=== PATIENT | female | born 1995 | race Caucasian/White ===

== ENCOUNTER → 2020-03-02 15:05 | Outpatient (BNVA) | payer BC, SELFPAY | PROVIDERS: Family Provider Nurse Practitioner Family; PCP Nurse Practitioner Family; Visit Provider Nurse Practitioner Family | DX: Z34.90 Encounter for supervision of normal pregnancy, unspecified, unspecified trimester (principal); Z3A.01 Less than 8 weeks gestation of pregnancy; R11.0 Nausea | CPT/HCPCS: 81000; 81025 ==

== ENCOUNTER → 2020-03-30 11:04 | Outpatient (BNVA) | payer MEDICAID, SELFPAY | PROVIDERS: Family Provider Nurse Practitioner Family; PCP Nurse Practitioner Family; Visit Provider Nurse Practitioner Women's Health | DX: Z34.81 Encounter for supervision of other normal pregnancy, first trimester (principal) | CPT/HCPCS: 81000 ==

== ENCOUNTER → 2020-04-17 10:50 | Outpatient (BNVA) | payer MEDICAID, SELFPAY | PROVIDERS: Family Provider Nurse Practitioner Family; PCP Nurse Practitioner Family; Visit Provider Obstetrics & Gynecology | DX: O99.211 Obesity complicating pregnancy, first trimester (principal) | CPT/HCPCS: 80053; 80307; 81000; 82950; 84443; 85027; 86592; 86762; 86803; 86850; 86900; 87086; 87340; 87806 ==

== ENCOUNTER → 2020-04-24 08:58 | Outpatient (BNVA) | payer BC, MEDICAID, SELFPAY | PROVIDERS: Family Provider Nurse Practitioner Family; PCP Nurse Practitioner Family; Visit Provider Obstetrics & Gynecology | DX: R73.09 Other abnormal glucose (principal) | CPT/HCPCS: 82951; 82952 ==

== ENCOUNTER → 2020-05-01 11:23 | Outpatient (BNVA) | payer BC, MEDICAID, SELFPAY | PROVIDERS: Family Provider Nurse Practitioner Family; PCP Nurse Practitioner Family; Visit Provider Obstetrics & Gynecology | DX: Z34.81 Encounter for supervision of other normal pregnancy, first trimester (principal); Z12.4 Encounter for screening for malignant neoplasm of cervix | CPT/HCPCS: 81000; 87491; 87591; 88175 ==

== ENCOUNTER → 2020-05-29 13:52 | Outpatient (BNVA) | payer MEDICAID, SELFPAY | PROVIDERS: Family Provider Nurse Practitioner Family; PCP Nurse Practitioner Family; Visit Provider Nurse Practitioner Women's Health | DX: Z34.90 Encounter for supervision of normal pregnancy, unspecified, unspecified trimester (principal); R82.71 Bacteriuria | CPT/HCPCS: 80053; 81000; 87086 ==

== ENCOUNTER → 2020-06-05 16:10 | Outpatient (BNVA) | payer BC, MEDICAID, SELFPAY | PROVIDERS: Family Provider Nurse Practitioner Family; PCP Nurse Practitioner Family; Visit Provider Obstetrics & Gynecology | DX: R82.71 Bacteriuria (principal) | CPT/HCPCS: 80053 ==

== ENCOUNTER → 2020-06-26 08:49 | Outpatient (BNVA) | payer MEDICAID, SELFPAY | PROVIDERS: Family Provider Nurse Practitioner Family; PCP Nurse Practitioner Family; Visit Provider Obstetrics & Gynecology | DX: O98.819 Other maternal infectious and parasitic diseases complicating pregnancy, unspecified trimester (principal); A74.9 Chlamydial infection, unspecified; Z3A.00 Weeks of gestation of pregnancy not specified | CPT/HCPCS: 81000; 87491 ==

== ENCOUNTER → 2020-07-20 15:31 | Outpatient (BNVA) | payer MEDICAID, SELFPAY | PROVIDERS: Family Provider Nurse Practitioner Family; PCP Nurse Practitioner Family; Visit Provider Nurse Practitioner Women's Health | DX: Z34.90 Encounter for supervision of normal pregnancy, unspecified, unspecified trimester (principal) | CPT/HCPCS: 81000 ==

== ENCOUNTER → 2020-08-13 13:45 | Outpatient (BNVA) | payer BC, MEDICAID, SELFPAY | PROVIDERS: Family Provider Nurse Practitioner Family; PCP Nurse Practitioner Family; Visit Provider Nurse Practitioner Family | DX: Z20.828 Contact with and (suspected) exposure to other viral communicable diseases (principal) | CPT/HCPCS: 87635 ==

== ENCOUNTER → 2020-08-20 14:09 | Outpatient (BNVA) | payer MEDICAID, SELFPAY | PROVIDERS: Family Provider Nurse Practitioner Family; PCP Nurse Practitioner Family; Visit Provider Obstetrics & Gynecology | DX: O99.213 Obesity complicating pregnancy, third trimester; Z67.91 Unspecified blood type, Rh negative; O98.819 Other maternal infectious and parasitic diseases complicating pregnancy, unspecified trimester; A74.9 Chlamydial infection, unspecified; B95.1 Streptococcus, group B, as the cause of diseases classified elsewhere; O26.893 Other specified pregnancy related conditions, third trimester; Z3A.28 28 weeks gestation of pregnancy | CPT/HCPCS: 81000; 82950; 85027; 86850; 87491 ==

== ENCOUNTER → 2020-09-03 00:01 | Outpatient (BNVA) | payer MEDICAID, SELFPAY | PROVIDERS: Family Provider Nurse Practitioner Family; PCP Nurse Practitioner Family; Visit Provider Obstetrics & Gynecology | DX: O98.819 Other maternal infectious and parasitic diseases complicating pregnancy, unspecified trimester (principal); A74.9 Chlamydial infection, unspecified; O26.899 Other specified pregnancy related conditions, unspecified trimester; R73.09 Other abnormal glucose; Z3A.00 Weeks of gestation of pregnancy not specified | CPT/HCPCS: 81000; 82951; 82952 ==

== ENCOUNTER → 2020-10-02 10:21 | Outpatient (BNVA) | payer BC, SELFPAY | PROVIDERS: Family Provider Nurse Practitioner Family; PCP Nurse Practitioner Family; Visit Provider Nurse Practitioner Women's Health | DX: O98.819 Other maternal infectious and parasitic diseases complicating pregnancy, unspecified trimester (principal); A74.9 Chlamydial infection, unspecified; O26.893 Other specified pregnancy related conditions, third trimester; Z67.91 Unspecified blood type, Rh negative; R82.71 Bacteriuria; O99.210 Obesity complicating pregnancy, unspecified trimester; E66.9 Obesity, unspecified; Z3A.00 Weeks of gestation of pregnancy not specified | CPT/HCPCS: 81000 ==

== ENCOUNTER → 2020-10-16 09:36 | Outpatient (BNVA) | payer BC, SELFPAY | PROVIDERS: Family Provider Nurse Practitioner Family; PCP Nurse Practitioner Family; Visit Provider Obstetrics & Gynecology | DX: O98.819 Other maternal infectious and parasitic diseases complicating pregnancy, unspecified trimester (principal); A74.9 Chlamydial infection, unspecified; O99.210 Obesity complicating pregnancy, unspecified trimester; R82.71 Bacteriuria; O26.893 Other specified pregnancy related conditions, third trimester; Z67.91 Unspecified blood type, Rh negative; O99.013 Anemia complicating pregnancy, third trimester; O98.813 Other maternal infectious and parasitic diseases complicating pregnancy, third trimester; Z3A.36 36 weeks gestation of pregnancy | CPT/HCPCS: 81000; 87491 ==

== ENCOUNTER → 2020-10-23 09:51 | Outpatient (BNVA) | payer BC, SELFPAY | PROVIDERS: Family Provider Nurse Practitioner Family; PCP Nurse Practitioner Family; Visit Provider Obstetrics & Gynecology | DX: O98.819 Other maternal infectious and parasitic diseases complicating pregnancy, unspecified trimester (principal); A74.9 Chlamydial infection, unspecified; O26.893 Other specified pregnancy related conditions, third trimester; Z67.91 Unspecified blood type, Rh negative; R82.71 Bacteriuria; Z3A.00 Weeks of gestation of pregnancy not specified | CPT/HCPCS: 81000 ==

== ENCOUNTER 2020-10-25 09:33 | Outpatient (CLI) | payer BC, SELFPAY ==
[2020-10-25] VITALS (8 sets, daily range): BP systolic 124–140; BP diastolic 78–86; PULSE 81–100; BMI 36.6
[2020-10-25 12:30] LABS: Nitrazine Paper, PH Negative
== END 2020-10-25 12:15 | disposition home or self-care (01) ==
LOC: OPOB 09:35 → OBGYN 10:09
PROVIDERS: Family Provider Nurse Practitioner Family; PCP Nurse Practitioner Family; Visit Provider Obstetrics & Gynecology
DX: O26.899 Other specified pregnancy related conditions, unspecified trimester (principal); Z3A.00 Weeks of gestation of pregnancy not specified; N89.8 Other specified noninflammatory disorders of vagina
CPT/HCPCS: 59025; 83986; 99211

== ENCOUNTER 2020-10-30 15:02 | Inpatient (IN) | payer BC, MEDICAID, SELFPAY ==
[2020-10-30] VITALS (71 sets, daily range): BP systolic 96–158; BP diastolic 52–120; PULSE 81–169; RESP 18–20; TEMP 36.5–37.4; O2SAT 93–100; BMI 36.7
[2020-10-30 16:58] LABS: Basophils % 0.2 %; Eosinophils % 0.1 %; Hematocrit 34.7 % (37.0-47.0); Hemoglobin 11.7 g/dL (11.5-15.3); Lymphocytes # 1.4 10^3/uL (0.8-4.8); Lymphocytes % 7.5 %; Mean Corpuscular HGB Conc 33.7 g/dL (30.0-36.0); Mean Corpuscular Hemoglobin 30.3 pg (28.0-34.0); Mean Corpuscular Volume 89.9 fL (81-99); Mean Platelet Volume 11.4 fL (7.4-10.4); Monocytes # 1.2 10^3/uL (0.2-0.9); Monocytes % 6.6 %; Neutrophils # 16.13 10^3/uL (1.8-7.7); Neutrophils % 85.1 %; Nucleated Red Blood Cells % 0 %; Platelet Count 240 10^3/cmm (130-400); Red Blood Count 3.86 10^6/uL (4.1-5.3); Red Cell Distribution Width 13.7 % (12.1-15.1); White Blood Count 18.9 10^3/uL (4.0-10.0)
[2020-10-30] MEDS: ampicillin 2,000 MG in sodium chloride 0.9% (plus) 50 ML 100 MG IV (17:04)
[2020-10-30] MEDS: lactated ringers 1,000 ML 999 ML IV (17:04)
--- NOTE | 2020-10-30 17:51 | ANES.PREANE2 ---
Pre-Anesthetic Assessment Pre-Anesthetic Assessment: Height/Weight: Height 1.57 m Weight 91.172 kg Pulse BP 81 97/57 10/30/20 17:33 10/30/20 17:33 Preop Diagnosis: labor Proposed Procedure: epidural Was Beta Rowan taken within 24 hours: N/A Last Intake: 11:30 Social: Social History: No alcohol and No tobacco Exam: Pre-Anes Outpt Exam: alert, oriented x 3, clear to auscultation bilaterally and regular rate & rhythm Airway: Submandibular: WNL Cervical ROM: WNL MP: 2 Dentition: Full Pulmonary: Pulmonary: None reported CV/HEM: CV/HEM: None reported : : None reported Hepatic: Hepatic: None reported GI: GI: None reported Metabolic: Metabolic: None reported Musc/skel: Musc/skel: None reported Neuropsych: Neuropsych: None reported Anesthetic Plan: ASA status: 2 Anesthesia: Eval. for regional block and Regional (specify below) (epidural) Meds/Allergies Current Medications: Current Medications Generic Name Dose Route Start Last Admin Trade Name Freq PRN Reason Stop Dose Admin Lactated Ringer's 1,000 mls @ 999 m ls/hr 10/30/20 16:19 10/30/20 17:04 Lactated Ringers IV 999 mls/hr .Q1H1M PRN Administration See label comment s PFSH Anesthesia PFSH: Medical History No pertinent past medical history Denies diabetes, asthma, hypertension, seizures, DVT/PE PMD: None Surgical History History of tonsillectomy and adenoidectomy At the age of-no complications Family History Mother Diabetes Hypertension Denies family history of Colon cancer Ovarian cancer Heart disease Hyperlipidemia Breast cancer Uterine cancer Thyroid condition Stroke Social History Additional social history: - Female Reproductive History: : 2 Data Anesthesia CBC & Chem 7: 10/30/20 16:45 Other Labs: Laboratory Results - last 48 hr 10/30/20 16:45 WBC 18.9 H RBC 3.86 L Hgb 11.7 Hct 34.7 L MCV 89.9 MCH 30.3 MCHC 33.7 RDW 13.7 Plt Count 240 MPV 11.4 H Neut % (Auto) 85.1 Lymph % (Auto) 7.5 Clinton % (Auto) 6.6 Eos % (Auto) 0.1 Baso % (Auto) 0.2 Neut # (Auto) 16.13 H Lymph # (Auto) 1.4 Clinton # (Auto) 1.2 H Eos # (Auto) 0.0 Baso # (Auto) 0.0 Nucleated RBC % (auto) 0 Nucleated RBCs # 0.0 Cardiac Studies: No Data to Display
--- NOTE | 2020-10-30 18:25 | P.ANES_ITS ---
Anesthesia Procedures Procedure/Date: 10/30/20 Epidural: Time Out Performed: Yes Consents Signed: Procedure Consent and NPO Consent Consent: requested by attending/covering physician, from patient, risks and benefits reviewed and patient agrees to proceed Lumbar Level: L3-L4 Epidural position: sitting Epidural procedure: sterile prep of area (betadine), 1% lidocaine to numb the area (3ml), 18 g needle, neg for paresthesia, test dose given, 1.5% xylocaine 1:200k epi (5ml), 0.2% Ropivacaine bolus ml (5ml), placed PCEA, no systemic response, sterile dressing applied, L.U.D. no apparent complications and 0.2% Ropiavacaine @ mls/hr (11ml/hr) Additional Comments: First epidural had positive test dose with HR inc from 88- 130. Catheter removed with tip intact. Catheter replaced with negative test dose. Pt tolerated well
[2020-10-30] MEDS: ampicillin 1,000 MG in sodium chloride 0.9% (plus) 50 ML 100 MG IV (20:18)
[2020-10-30] MEDS: dextrose 5%-lactated ringers 1,000 ML 125 ML IV (20:19)
--- NOTE | 2020-10-30 22:22 | P.PCNOB_ITS ---
Delivery Note: Date of delivery: October 30, 2020 Pre-delivery diagnoses: spontaneous labor GBS + in rh negative anemia chlamydia infection in Post-delivery diagnoses: same with spontaneous vaginal delivery Procedure: Op report anesthesia: Epidural Delivering Physician: brody Estimated blood loss (mL): 50 Findings: term female in the cephalic presentation Pre-Delivery Course: The patient presented to labor and delivery in active labor. She made cervical change and was admitted. She received an epidural for pain management. She had complete cervical dilation and began pushing. She received two doses of PCN prior to delivery. She had SROM at the point where she began to push.. Delivery: The patient had spontaneous vaginal delivery of a term female in the ROP to NORBERT position over an intact perineum under epidural anesthesia. A single nuchal cord was reduced at the perineum. The shoulders and body delivered atraumatically. Inspection revealed no repair was required. An intact placenta delivered spontaneously. Apgars on baby 8 at 1 minute and 9 at 5 minutes. Weight 8 pounds 1 ounce. Mother and were stable postdelivery. Cord blood was sent due to mothers Rh- status. 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
[2020-10-31] VITALS (14 sets, daily range): BP systolic 106–126; BP diastolic 55–74; PULSE 83–109; TEMP 36.9
[2020-10-31] MEDS: benzocaine-menthol 78 gm Canister 1 SPRAY TOPICAL (04:35)
[2020-10-31] MEDS: docusate sodium 100 mg Capsule PO ×2 (09:51→17:29)
[2020-10-31] MEDS: ibuprofen 800 mg tablet PO ×3 (09:51→20:50)
[2020-10-31] MEDS: prenatal vitamin Capsule 1 CAP PO (09:51)
[2020-10-31 11:01] LABS: Hematocrit 33.3 % (37.0-47.0); Hemoglobin 11.3 g/dL (11.5-15.3); Mean Corpuscular HGB Conc 33.9 g/dL (30.0-36.0); Mean Corpuscular Hemoglobin 30.7 pg (28.0-34.0); Mean Corpuscular Volume 90.5 fL (81-99); Mean Platelet Volume 11.3 fL (7.4-10.4); Platelet Count 253 10^3/cmm (130-400); Red Blood Count 3.68 10^6/uL (4.1-5.3); Red Cell Distribution Width 13.9 % (12.1-15.1); White Blood Count 26.8 10^3/uL (4.0-10.0)
[2020-10-31 14:17] LABS: Coronavirus Test Green County Not Detected
--- NOTE | 2020-10-31 15:03 | P.PN_ITS ---
Subjective Subjective: Interval history: The patient is doing well this morning with no complaints. Medications: Reviewed: Yes Vitals/I&O/Wt Last Vital Signs Temp 98.1 F 11/01/20 10:28 Pulse 81 11/01/20 10:23 Resp 16 11/01/20 10:28 BP 108/72 11/01/20 10:23 Pulse Ox 97 10/30/20 22:09 11/01/20 11/01/20 11/01/20 06:59 14:59 22:59 Intake Total Balance Weight last 48 hrs Weight 201 lb Physical Exam Const: COMMON NORMALS: no acute distress, average body habitus, patient oriented x3, no limitations, healthy appearing, alert and well nourished ORIENTATION/CONSCIOUSNESS: Yes awake Resp: COMMON NORMALS: normal respiratory effort and No retractions EFFORT & INSPECTION: Yes able to speak in complete sentences GI: COMMON NORMALS: Soft to palpation and non-tender PALPATION: Yes Soft to palpation Extremity: COMMON NORMALS: no clubbing, cyanosis or edema Neuro: COMMON NORMALS: patient oriented x3 SENSORIUM/ORIENTATION: Yes alert Urinary Catheter Management^: Lynn: Cath Placed During This Visit: yes, but has since been removed by the nurse Reason for Continuing Indwelling Catheter: Decision to DC Catheter Urinary Catheter Date of Insertion: 10/30/20 Urinary Catheter Time of Insertion: 18:30 Date Urinary Catheter Removed: 10/30/20 Time Urinary Catheter Discontinued: 21:45 Data : 10/31/20 10:35 Attestations Medical Necessity Statement*: The patient is post and expected to be here 2 midnights. 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
[2020-11-01 01:00] VITALS: TEMP 36.7
[2020-11-01 03:12] VITALS: BP 100/55; PULSE 74; TEMP 36.9
[2020-11-01] MEDS: ibuprofen 800 mg tablet PO ×2 (08:31→15:05)
[2020-11-01] MEDS: docusate sodium 100 mg Capsule PO (08:31)
[2020-11-01] MEDS: prenatal vitamin Capsule 1 CAP PO (08:32)
--- NOTE | 2020-11-01 09:31 | ANE.PACU2 ---
Inpatient post-anesthesia follow up: Airway intact: Yes Vital signs: Temperature 98.4 F Pulse Rate 74 Respiratory Rate 20 Blood Pressure 100/55 Pulse Oximetry 97 Oxygen Delivery Me thod Room Air Oxygen Flow Rate Fraction of Inspir ed Oxygen Hydration adequate: Yes Nausea and vomiting: No Pain level: 1 Mental status: Baseline Additional Comments: No s/s infection at epidural site, no weakness/numbness legs, no headache, peeing [id number] persaud
[2020-11-01 10:23] VITALS: BP 108/72; PULSE 81; RESP 16; TEMP 36.7
[2020-11-01 10:28] VITALS: RESP 16; TEMP 36.7
--- NOTE | 2020-11-01 15:05 | P.DS_ITS ---
Discharge Providers Date of Admission: 10/30/20 15:02 Date of Discharge: November 01, 2020 Attending Provider at Admission: Tamara Mcpherson MD Attending Provider at Discharge: Tanesha Kaur MD Primary Care Provider: Justina Fagan APN Diagnoses at Discharge Discharge Diagnosis (1) Anemia affecting in third trimester: Status: Acute (2) Rh negative status during : Status: Acute Qualifiers: Trimester: third trimester Qualified Code(s): O26.893 - Other specified related conditions, third trimester; Z67.91 - Unspecified blood type, Rh negative (3) Supervision of normal : Status: Acute Qualifiers: Normal : other normal Trimester: third trimester Qualified Code(s): Z34.83 - Encounter for supervision of other normal , third trimester Reason for Visit Reason for Visit: CONTRACTIONS Hospital Course Hospital Course The patient was admitted in active labor. She had spontaneous delivery of a term female . She did well and was ready for discharge on day #2 Physical Exam Narrative: EXAM NARRATIVE: The patient is doing well today. no complaints. Baby will be here until tomorrow morning due to GBS+ status. Const: COMMON NORMALS: no acute distress, patient oriented x3, no limitations, healthy appearing, alert and well nourished ORIENTATION/CONSCIOUSNESS: Yes awake Resp: COMMON NORMALS: normal respiratory effort and No retractions EFFORT & INSPECTION: Yes able to speak in complete sentences GI: COMMON NORMALS: Soft to palpation and non-tender PALPATION: Yes Soft to palpation Extremity: COMMON NORMALS: no clubbing, cyanosis or edema Neuro: COMMON NORMALS: patient oriented x3 SENSORIUM/ORIENTATION: Yes alert Urinary Catheter Management^: Lynn: Cath Placed During This Visit: yes, but has since been removed by the nurse Reason for Continuing Indwelling Catheter: Decision to DC Catheter Urinary Catheter Date of Insertion: 10/30/20 Urinary Catheter Time of Insertion: 18:30 Date Urinary Catheter Removed: 10/30/20 Time Urinary Catheter Discontinued: 21:45 Discharge Data Data Completed and Pending: Labs from last 24 hours 10/30/20 16:45 Blood Type O Negative Rho(D) Type Negative Antibody Screen Positive Antibody Identific ation Anti-D Vitals: Last Vital Signs Temp 98.1 F 11/01/20 10:28 Pulse 81 11/01/20 10:23 Resp 16 11/01/20 10:28 BP 108/72 11/01/20 10:23 Pulse Ox 97 10/30/20 22:09 Discharge Plan Discharge Patient Disposition: Home Condition: Stable Prescriptions: Continued Gummies 400 mcg-35 mg- 25 mg-5 mg tablet,chewable 2 tab PO DAILY RF: 0 ferrous sulfate 325 mg (65 mg iron) tablet,delayed release (DR/EC) 325 mg PO BID RF: 0 Discharge Orders: Discharge Order (Routine); Ordered 11/01/20 Ordered By: Tamara Mcpherson Referrals: Tanesha Kaur MD [Physician] - 12/18/20 10:15 am (Your 6 week visit has been scheduled for 12/18/2020 at 10:15 am.) Patient Instructions: Vitamins (By mouth), Breast Care for the Non- breast Feeding Woman (DC), Pre-eclampsia and Eclampsia (DC), Bleeding (DC), OB Discharge Report, OB Food/Drug Interaction Guide, OB Home Care, OB Proud Parent Packet, OB Vaginal Deliveries - [facility] Discharge Attestations Time Spent in Discharge Care*: less than 30 min Quality Metrics Clinical Quality Measures During this hospital stay, did patient experience: None Coding Level of Care 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
[2020-11-01 16:19] VITALS: BP 108/61; PULSE 75; RESP 17; TEMP 36.5
[2020-11-12 11:29] VITALS: BP 122/74; PULSE 88
[2020-11-12 12:01] VITALS: BP 128/77; PULSE 86
[2020-11-12 12:51] VITALS: BP 135/80; PULSE 75
[2020-11-12 13:06] VITALS: BP 144/86; PULSE 78
== END 2020-11-01 16:21 | disposition home or self-care (01) | DRG 806 ==
LOC: OPOB 15:02 → OBGYN 10-31 09:41
PROVIDERS: Obstetrics & Gynecology; Admitting Provider Obstetrics & Gynecology; Family Provider Nurse Practitioner Family; PCP Nurse Practitioner Family; Visit Provider Obstetrics & Gynecology
DX: O99.824 Streptococcus B carrier state complicating childbirth (principal); O36.0930 Maternal care for other rhesus isoimmunization, third trimester, not applicable or unspecified; Z37.0 Single live birth; O98.82 Other maternal infectious and parasitic diseases complicating childbirth; O99.02 Anemia complicating childbirth; D64.9 Anemia, unspecified; O99.214 Obesity complicating childbirth; O69.2XX0 Labor and delivery complicated by other cord entanglement, with compression, not applicable or unspecified; Z3A.38 38 weeks gestation of pregnancy
CPT/HCPCS: 36415; 36430; 51702; 59025; 59409; 80500; 81000; 85025; 85027; 85460; 86850; 86870; 86900; 87635; 90384; 99211; J0290; J2795

== ENCOUNTER 2021-02-17 00:51 | Emergency (ER) | payer BC, MEDICAID, SELFPAY ==
[2021-02-17] VITALS (7 sets, daily range): BP systolic 105–133; BP diastolic 75–96; PULSE 60–80; RESP 13–22; TEMP 36.6; O2SAT 95–100; BMI 32.9
--- NOTE | 2021-02-17 01:15 | XRR_ITS ---
PROCEDURE INFORMATION: Exam: XR Chest Exam date and time: 02/17/2021 1:31 AM Age: 25 years old Clinical indication: Pain; Right-sided; Additional info: Cp TECHNIQUE: Imaging protocol: XR of the chest. Views: 1 view. COMPARISON: No relevant prior studies available. FINDINGS: Lungs: Unremarkable. No consolidation. Pleural spaces: Unremarkable. No pleural effusion. No pneumothorax. Heart/Mediastinum: Unremarkable. No cardiomegaly. Bones/joints: Unremarkable. XR/XR chest 1V portable [id number] IMPRESSION: No acute findings.
--- NOTE | 2021-02-17 01:17 | USR_ITS ---
PROCEDURE INFORMATION: Exam: US Abdomen, Limited; Right Upper Quadrant Exam date and time: 02/17/2021 1:51 AM Age: 25 years old Clinical indication: Abdominal pain; Acute; Additional info: Ruq pain TECHNIQUE: Imaging protocol: US abdomen. Real time ultrasound with image documentation. Limited exam focused on the right upper quadrant. COMPARISON: No relevant prior studies available. FINDINGS: Liver: Normal. No masses. Gallbladder: Mobile gallstones are present with shadowing. There is no gallbladder wall thickening. Common bile duct: Normal. No stones. No dilation. Pancreas: Visualized pancreas is unremarkable. Right kidney: Normal. No mass. No hydronephrosis. US/US gall bladder [id number] IMPRESSION: Gallstones are present without gallbladder wall thickening or ductal dilatation.
--- NOTE | 2021-02-17 01:17 | ECG_ITS ---
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 Measurements Intervals [place] Rate: 58 P: 42 DE: 166 QRS: 36 QRSD: 94 T: 40 QT: 435 QTc: 429 Interpretive Statements SINUS BRADYCARDIA WITH SINUS ARRHYTHMIA INCOMPLETE RIGHT BUNDLE BRANCH BLOCK [90+ ms QRS DURATION, TERMINAL R IN V1/V2, 40+ ms S IN I/aVL/V4/V5/V6] No previous ECG available for comparison Electronically Signed On 02-17-2021 22:14:23 CDT by Yassine Patel M.D. [id number]
[2021-02-17 01:26] LABS: Basophils % 0.3 %; Eosinophils # 0.1 10^3/uL (0.0-0.8); Hematocrit 37.5 % (37.0-47.0); Hemoglobin 12.9 g/dL (11.5-15.3); Lymphocytes # 3.1 10^3/uL (0.8-4.8); Lymphocytes % 31.4 %; Mean Corpuscular HGB Conc 34.4 g/dL (30.0-36.0); Mean Corpuscular Hemoglobin 31.2 pg (28.0-34.0); Mean Corpuscular Volume 90.6 fL (81-99); Mean Platelet Volume 10.3 fL (7.4-10.4); Monocytes # 0.7 10^3/uL (0.2-0.9); Monocytes % 6.7 %; Neutrophils # 5.89 10^3/uL (1.8-7.7); Neutrophils % 60.4 %; Nucleated Red Blood Cells % 0 %; Platelet Count 284 10^3/cmm (130-400); Red Blood Count 4.14 10^6/uL (4.1-5.3); Red Cell Distribution Width 12.3 % (12.1-15.1); White Blood Count 9.8 10^3/uL (4.0-10.0)
[2021-02-17] MEDS: sodium chloride 0.9% 1,000 ML 999 ML IV (01:28)
[2021-02-17] MEDS: morphine 4 mg/mL SDV 1 mL IVP ×2 (01:28→02:42)
[2021-02-17] MEDS: ondansetron 2 mg/ML SDV 2 mL 4 MG IVP (01:28)
[2021-02-17] MEDS: ketorolac 30 mg/mL INJ IVP (01:28)
[2021-02-17 01:36] LABS: HCG, Serum Qual Negative (Negative)
[2021-02-17 01:40] LABS: D Dimer <= 0.27 ug/mIFEU (0-0.59)
[2021-02-17 01:42] LABS: Troponin T (5th) Once 6 ng/L (0-10)
[2021-02-17 01:45] LABS: Alanine Aminotransferase 9 U/L (0-33); Albumin Level 4.6 g/dL (3.5-5.2); Alkaline Phosphatase 87 IU/L (35-105); Anion Gap 17.6 (5-19); Aspartate Amino Transferase 11 U/L (0-32); Blood Urea Nitrogen 11 mg/dL (6-20); C Reactive Protein 1.2 mg/L (0.0-4.9); Calcium 9.2 mg/dL (8.5-10.5); Carbon Dioxide 19 mmol/L (22-29); Chloride 104 mmol/L (98-107); Globulin 2.2 g/dL (1.3-4.6); Glomerular Filtration Rate 101.1 mL/min (90-130); Glucose 103 mg/dL (65-115); Lipase 30 U/L (13-60); Osmolality Calculated 284 mOsm/kg (285-295); Potassium 3.6 mmol/L (3.5-5.1); Sodium 137 mmol/L (136-145); Total Bilirubin 0.2 mg/dL (0.15-1.2); Total Protein 6.8 g/dL (6.6-8.7)
--- NOTE | 2021-02-17 02:16 | W.ED.ABDPA2 ---
HPI - Abdominal Pain General: Chief Complaint: Abdominal Pain Stated Complaint: cp, back pain, ab pain Time Seen by Provider: 02/17/21 01:06 History of Present Illness: HPI narrative: 25-year-old female with epigastric and right upper quadrant pain as well as chest pain. It started around 8 PM tonight. It did not go away. She vomited 1 time. She remains nauseated. No fever. She states no shortness of breath. MD elicited complaint: abdominal pain Pertinent past history: other Onset (ago): hour(s) Pain Consistency: constant Location: Chest, Epigastric and RUQ Severity: moderate Quality: stabbing and aching Radiation: back Migration to: no migration Exacerbating factors: movement Relieving factors: nothing Associated Symptoms: Reports GI cramping, diarrhea, nausea and vomiting; Denies belching, change in bowel habits, change in stool character, chills, constipation, dysuria, excessive flatus and fever(s) Related Data: Date of Last Menstrual Period: 01/19/21 Review of Systems Const: Denies: fever(s) or chills ENMT: Denies: throat pain Card: Reports: chest pain; Denies: palpitations or irregular heart rhythm Resp: Denies: dyspnea, productive cough, non-productive cough or wheezing GI: Reports: nausea, vomiting, diarrhea and GI cramping; Denies: constipation, belching, excessive flatus, change in bowel habits or change in stool character : Denies: dysuria Neuro: Denies: headache(s) or dizziness PFSH ED PFSH: Medical History No pertinent past medical history Denies diabetes, asthma, hypertension, seizures, DVT/PE PMD: None Surgical History History of tonsillectomy and adenoidectomy At the age of-no complications Family History Mother Diabetes Hypertension Denies family history of Colon cancer Ovarian cancer Heart disease Hyperlipidemia Breast cancer Uterine cancer Thyroid condition Stroke Social History Additional social history: - Female Reproductive History: Date of last menstrual period: 01/19/21 Physical Exam Const: GENERAL APPEARANCE: well developed, in distress and ill appearing ORIENTATION/CONSCIOUSNESS: Yes oriented to person, Yes oriented to place and Yes oriented to time HENMT: COMMON NORMALS: normocephalic and Normal external nose present HEAD & SCALP: normocephalic FACE & SINUS: normal facial exam NOSE: Normal external nose present and No nasal discharge present Eye: COMMON NORMALS: Equal, round and reactive pupils present, EOMs intact bilaterally and conjunctivae normal EYELID: eyelids normal CONJUNCTIVA: Yes conjunctivae normal PUPIL: Yes Equal, round and reactive pupils present Neck/C-Spine: COMMON NORMALS: full ROM GENERAL: No tracheal deviation Chest: COMMONS NORMALS: normal inspection of the chest CHEST: No tenderness Resp: COMMON NORMALS: clear to auscultation bilaterally EFFORT & INSPECTION: No tachypneic, No respiratory distress, No retractions, No uses accessory muscles and No tracheal deviation AUSCULTATION: clear to auscultation bilaterally, no rhonchi, no wheezes and lung sounds not diminished Cardio: COMMON NORMALS: regular rate and regular rhythm RATE: regular rate RHYTHM: regular rhythm HEART SOUNDS: no murmurs PERIPHERAL PULSES: radial pulses present GI: INSPECTION: No abdominal distension AUSCULTATION: No Hyperactive bowel sounds present and No Hypoactive bowel sounds present PALPATION: No Guarding due to palpation present (GI) and No Rigid due to palpation PERCUSSION: no dullness to percussion and no tympanic to percussion Neuro: SENSORIUM/ORIENTATION: Yes oriented to person, Yes oriented to place and Yes oriented to time Psych: COMMON NORMALS: mental status grossly normal Skin: COMMON NORMALS: no rashes or lesions noted GENERAL SKIN EXAM: no rashes or lesions noted Course Vital Signs: Vital signs: Vital Signs Temperature 97.9 F 02/17/21 00:58 Pulse Rate 78 02/17/21 02:30 Respiratory Rate 20 H 02/17/21 02:42 Blood Pressure 122/79 02/17/21 02:30 Pulse Oximetry 98 02/17/21 02:42 MDM - Abdominal Pain MDM Narrative: Medical decision making narrative: Patient given fluids antiemetics and pain medication here. She is improved. Her bicarbonate level is 19. Other laboratory including troponin and D-dimer are normal. Chest x-ray is negative. Right upper quadrant ultrasound shows gallstones in the gallbladder, in the fundus. Bile ducts are normal. No wall thickening or pericholecystic fluid. She will be discharged home. Lab Data: Labs: Lab Results 02/17/21 02/17/21 02/17/21 Range/Units 01:21 01:21 01:21 WBC 9.8 (4.0-10.0) 10^3/ uL RBC 4.14 (4.1-5.3) 10^6/u L Hgb 12.9 (11.5-15.3) g/dL Hct 37.5 (37.0-47.0) % MCV 90.6 (81-99) fL MCH 31.2 (28.0-34.0) pg MCHC 34.4 (30.0-36.0) g/dL RDW 12.3 (12.1-15.1) % Plt Count 284 (130-400) 10^3/c mm MPV 10.3 (7.4-10.4) fL Neut % (Auto) 60.4 % Lymph % (Auto) 31.4 % Ramsey % (Auto) 6.7 % Eos % (Auto) 1.0 % Baso % (Auto) 0.3 % Neut # (Auto) 5.89 (1.8-7.7) 10^3/u L Lymph # (Auto) 3.1 (0.8-4.8) 10^3/u L Ramsey # (Auto) 0.7 (0.2-0.9) 10^3/u L Eos # (Auto) 0.1 (0.0-0.8) 10^3/u L Baso # (Auto) 0.0 (0.0-0.1) 10^3/u L Nucleated RBC % (a uto) 0 % Nucleated RBCs # 0.0 /100WBC D-Dimer <= 0.27 (0-0.59) ug/mIFE U Sodium 137 (136-145) mmol/L Potassium 3.6 (3.5-5.1) mmol/L Chloride 104 (98-107) mmol/L Carbon Dioxide 19 L (22-29) mmol/L Anion Gap 17.6 (5-19) BUN 11 (6-20) mg/dL Creatinine 0.7 (0.5-0.9) mg/dL GFR Calculation 101.1 (90-130) mL/min Glucose 103 (65-115) mg/dL Calculated Osmolal ity 284 L (285-295) mOsm/k g Calcium 9.2 (8.5-10.5) mg/dL Total Bilirubin 0.2 (0.15-1.2) mg/dL AST 11 (0-32) U/L ALT 9 (0-33) U/L Alkaline Phosphata se 87 (35-105) IU/L Troponin T Gen 5 n g/L (0-10) ng/L C-Reactive Protein 1.2 (0.0-4.9) mg/L Total Protein 6.8 (6.6-8.7) g/dL Albumin 4.6 (3.5-5.2) g/dL Globulin 2.2 (1.3-4.6) g/dL Lipase 30 (13-60) U/L HCG, Qual (Negative) Urine Color (Yellow) Urine Appearance (CLEAR) Urine pH (5-7) Ur Specific Gravit y (1.005-1.030) Urine Protein (Negative) Urine Glucose (UA) (Normal) Urine Ketones (Negative) Urine Blood (Negative) Urine Nitrate (Negative) Urine Bilirubin (Negative) Prot Sulfosalicyli c Acd (Negative) Urine Urobilinogen (Negative) mg/dL Ur Leukocyte Elise ase (Negative) Urine RBC (0-2) /hpf Urine WBC (0-5) /hpf Ur Squamous Epith Cells (0-5) /hpf Amorphous Sediment /hpf Urine Bacteria (NONE) /hpf Other Casts /lpf 02/17/21 02/17/21 02/17/21 Range/Units 01:21 01:21 02:24 WBC (4.0-10.0) 10^3/ uL RBC (4.1-5.3) 10^6/u L Hgb (11.5-15.3) g/dL Hct (37.0-47.0) % MCV (81-99) fL MCH (28.0-34.0) pg MCHC (30.0-36.0) g/dL RDW (12.1-15.1) % Plt Count (130-400) 10^3/c mm MPV (7.4-10.4) fL Neut % (Auto) % Lymph % (Auto) % Ramsey % (Auto) % Eos % (Auto) % Baso % (Auto) % Neut # (Auto) (1.8-7.7) 10^3/u L Lymph # (Auto) (0.8-4.8) 10^3/u L Ramsey # (Auto) (0.2-0.9) 10^3/u L Eos # (Auto) (0.0-0.8) 10^3/u L Baso # (Auto) (0.0-0.1) 10^3/u L Nucleated RBC % (a uto) % Nucleated RBCs # /100WBC D-Dimer (0-0.59) ug/mIFE U Sodium (136-145) mmol/L Potassium (3.5-5.1) mmol/L Chloride (98-107) mmol/L Carbon Dioxide (22-29) mmol/L Anion Gap (5-19) BUN (6-20) mg/dL Creatinine (0.5-0.9) mg/dL GFR Calculation (90-130) mL/min Glucose (65-115) mg/dL Calculated Osmolal ity (285-295) mOsm/k g Calcium (8.5-10.5) mg/dL Total Bilirubin (0.15-1.2) mg/dL AST (0-32) U/L ALT (0-33) U/L Alkaline Phosphata se (35-105) IU/L Troponin T Gen 5 n g/L 6 (0-10) ng/L C-Reactive Protein (0.0-4.9) mg/L Total Protein (6.6-8.7) g/dL Albumin (3.5-5.2) g/dL Globulin (1.3-4.6) g/dL Lipase (13-60) U/L HCG, Qual Negative (Negative) Urine Color Yellow (Yellow) Urine Appearance Clear (CLEAR) Urine pH 8 H (5-7) Ur Specific Gravit y 1.010 (1.005-1.030) Urine Protein Neg (Negative) Urine Glucose (UA) Norm (Normal) Urine Ketones Negative (Negative) Urine Blood Neg (Negative) Urine Nitrate Negative (Negative) Urine Bilirubin Neg (Negative) Prot Sulfosalicyli c Acd Negative (Negative) Urine Urobilinogen Norm (Negative) mg/dL Ur Leukocyte Elise ase Trace H (Negative) Urine RBC 0-4 H (0-2) /hpf Urine WBC 5-10 H (0-5) /hpf Ur Squamous Epith Cells 10-15 H (0-5) /hpf Amorphous Sediment 1+ /hpf Urine Bacteria Trace (NONE) /hpf Other Casts Wbc cast /lpf Discharge Plan Discharge Patient Disposition: Home Clinical Impression: Biliary colic Condition: Stable Prescriptions: New Zofran 4 mg tablet 4 mg PO Q6H PRN (Reason: nausea and vomiting) Qty: 10 RF: 0 ketorolac 10 mg tablet 10 mg PO TID PRN (Reason: pain) Qty: 10 RF: 0 No Action Gummies 400 mcg-35 mg- 25 mg-5 mg tablet,chewable 2 tab PO DAILY RF: 0 norethindrone-e.estradiol-iron [Junel FE 10/03 (28)] 1 mg-20 mcg (21)/75 mg (7) tablet 1 tab PO DAILY Qty: 84 RF: 0 Discharge Orders: Discharge ED (Routine); Ordered 02/17/21 Ordered By: Isauro Boyd Discharge Diet: Advance as tolerated and Clear Liquid Discharge Activity: Increase activity as tolerated Patient Instructions: Biliary Colic (ED) Activity Restrictions/Additional Instructions: Return for fever greater than 100, vomiting liquids or medications, worsening pain despite treatment, shortness of breath, any other concerning symptoms. 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
[2021-02-17 02:38] LABS: Urine Appearance Clear (CLEAR); Urine Color Yellow (Yellow); pH Urine 8 (5-7)
[2021-02-17 02:39] LABS: Add Urine Microscopic? YES; Bilirubin Urine Neg (Negative); Blood Urine Neg (Negative); Glucose Urine UA Norm (Normal); Ketones Urine Negative (Negative); Leukocyte Esterase Urine Trace (Negative); Nitrate Urine Negative (Negative); Protein Urine Neg (Negative); Sulfosalicylic Acid Urine Negative (Negative); Urobilinogen Urine Norm (Negative)
[2021-02-17 02:40] LABS: Amorphous Sediment Urine 1+ /hpf; Bacteria Urine TRACE /hpf; RBC Urine 0-4 /hpf (0-2)
[2021-02-17 02:41] LABS: Add Urine Culture? No; Other Casts Urine WBC CAST /lpf
--- NOTE | 2021-02-19 07:55 | DCPLANNER ---
restaurant district manager had message to schedule a follow up appointment for patient with general surgery for biliary colic. restaurant district manager emailed patients information to both Rhoda and Ailyn at [facility] General Surgery. Patients information will be printed and reviewed. Clinic will call patient with appointment information.
--- NOTE | 2021-02-21 08:28 | DCPLANNER ---
Patient has a follow up appointment scheduled for Monday, February 22, 2021 at 11:[address] Coon at general surgery. Clinic will call patient with appointment information.
--- NOTE | 2021-04-11 07:07 | DCPLANNER ---
Patient had a follow up appointment scheduled for 02.22.[address] Coon at general surgery - patient did attend appointment.
== END 2021-02-17 03:18 | disposition home or self-care (01) ==
PROVIDERS: Emergency Provider Emergency Medicine
DX: K80.70 Calculus of gallbladder and bile duct without cholecystitis without obstruction (principal)
CPT/HCPCS: 71045; 76705; 80053; 81001; 83690; 84484; 84703; 85025; 85378; 86140; 93005; 96361; 96374; 96375; 96376; 99284; J1885; J2270; J2405; J7030

== ENCOUNTER → 2021-03-04 11:25 | Outpatient (BNVA) | payer BC, MEDICAID, SELFPAY | PROVIDERS: Visit Provider Surgery | DX: K80.20 Calculus of gallbladder without cholecystitis without obstruction (principal); Z20.822 Contact with and (suspected) exposure to COVID-19 | CPT/HCPCS: 87635 ==

== ENCOUNTER 2021-03-06 07:25 | Day surgery (SDC) | payer BC, MEDICAID, SELFPAY ==
[2021-03-05 14:48] VITALS: BMI 32.9
[2021-03-06] VITALS (12 sets, daily range): BP systolic 96–136; BP diastolic 66–93; PULSE 62–94; RESP 14–29; TEMP 36.1–36.8; O2SAT 95–100
--- NOTE | 2021-03-06 07:29 | W.PM.OPSUD ---
Surgery/Procedure H&P Update DATE OF PROCEDURE: March 06, 2021 DATE H&P PERFORMED: 02/26/21 H&P UPDATE INFORMATION: I have reviewed H&P completed within last 30 days, I have examined patient prior to procedure and No changes to prior documentation PREOP DIAGNOSIS: labor PLANNED PROCEDURE: Operation Date: 03/06/21 08:50 Proposed Procedures p 69602 lap possible open cholecystectomy k80.20(Not Applicable) - Gabriel Coon MD
[2021-03-06] MEDS: sodium chloride 0.9% 1,000 ML 30 ML IV (07:50)
[2021-03-06 08:00] LABS: OR HCG Qualitative Urine Negative (Negative)
--- NOTE | 2021-03-06 08:04 | ANES.PREANE2 ---
Pre-Anesthetic Assessment Pre-Anesthetic Assessment: Height/Weight: Height 1.57 m Weight 81.647 kg Temp Pulse Resp BP Pulse Ox 97.2 F L 71 18 136/93 98 03/06/21 07:42 03/06/21 07:42 03/06/21 07:42 03/06/21 07:42 03/06/21 07:42 Preop Diagnosis: Cholelithiasis Proposed Procedure: Operation Date: 03/06/21 08:50 Proposed Procedures p 15224 lap possible open cholecystectomy k80.20(Not Applicable) - Gabriel Coon MD Familial anesthetic complications: None Was Beta Rowan taken within 24 hours: N/A Was Clonidine taken within 24 hours: N/A Last intake: Intake Last Liquid Date 03/05/21 Last Liquid Time 23:30 Last Solid Date 03/05/21 Last Solid Time 21:30 Social: Social History: No alcohol and No tobacco Exam: Pre-Anes Outpt Exam: alert, oriented x 3, clear to auscultation bilaterally and regular rate & rhythm Airway: Cervical ROM: WNL MP: 2 Dentition: Full Metabolic: Metabolic: Morbid obesity Anesthetic Plan: ASA status: 2 Anesthesia: General Risk of > 500 ml blood loss (7ml/kg in children): No PFSH Anesthesia PFSH: Medical History No pertinent past medical history Denies diabetes, asthma, hypertension, seizures, DVT/PE PMD: None Surgical History History of tonsillectomy and adenoidectomy At the age of-no complications Family History Mother Diabetes Hypertension Denies family history of Colon cancer Ovarian cancer Heart disease Hyperlipidemia Breast cancer Uterine cancer Thyroid condition Stroke Social History Additional social history: - Female Reproductive History: Date of last menstrual period: 02/20/21 Data Anesthesia Other Labs: Laboratory Results - last 48 hr 03/06/21 07:59 Urine HCG, Qual Negative Cardiac Studies: No Data to Display
[2021-03-06] MEDS: ondansetron 2 mg/ML SDV 2 mL 4 MG IVP (09:41)
[2021-03-06] MEDS: metoclopramide 5 mg/mL SDV 2 mL 10 MG IVP (09:46)
[2021-03-06] MEDS: fentaNYL 50 mcg/mL INJ 2mL IVP ×2 (09:46→09:52)
[2021-03-06] MEDS: HYDROcodone-acetaminophen 5-325 mg Tablet 1 TAB PO (10:31)
--- NOTE | 2021-03-06 15:47 | ANE.PACU2 ---
Inpatient post-anesthesia follow up: Airway intact: Yes Vital signs: Temperature 98.3 F Pulse Rate 70 Respiratory Rate 18 Blood Pressure 126/91 Pulse Oximetry 98 Oxygen Delivery Me thod Room Air Oxygen Flow Rate 8 Fraction of Inspir ed Oxygen Hydration adequate: Yes Nausea and vomiting: No Pain level: 2 Mental status: Baseline
--- NOTE | 2021-03-06 16:36 | PM.OP ---
Operative Report Date of procedure: March 06, 2021 Pre-op Diagnosis: Cholelithiasis Post-op diagnosis: same Procedure Done: Laparoscopic cholecystectomy Specimens removed/disposition: Gallbladder Surgeon: Gabriel Coon Anesthesia: General Condition: stable Disposition: PACU Procedure: The patient was taken to the operating room and was intubated under general anesthesia. After the antibiotic had been administered, the abdomen was prepped and draped in a sterile manner. Using a #15 blade, a 1 centimeter infraumbilical curvilinear incision was made and using an open Roc technique the peritoneal cavity was entered. A 10 millimeter port was placed and 15 millimeters of pneumoperitoneum was created. A 10 millimeter, 30 degrees scope was then introduced. Three 5 millimeter ports were placed in the epigastric, midclavicular and the anterior axillary line two fingerbreadths below the costal margin on the right side under the direct visualization. Ratcheted forceps were introduced into the lateral most port and was used to retract the fundus of the gallbladder cephalad and using forceps the infundibulum of the gallbladder was retracted laterally. Using L-hook cautery the peritoneum overlying the Calot's triangle was opened medially and laterally until the cystic duct and the cystic artery were skeletonized. There was moderate amount of inflammation around the Calot's triangle and there was a opening made in the infundibulum of the gallbladder with drainage of bile and spillage of small stones which was irrigated and suctioned out. Dissection was carried along the body of the gallbladder and after ensuring critical view of safety, 4 clips applied on the cystic duct and 3 clips applied on the cystic artery and cut leaving, 3 clips on the remaining portion of the duct and 2 clips on the remaining portion of the artery. The rest of the gallbladder was dissected off the liver using L-hook cautery. There was no bleeding or bile leaking noted from the gallbladder fossa and the clips appeared to be in place. An EndoCatch bag was introduced to remove the gallbladder. All the ports were removed under direct visualization and there was no bleeding noted from the port sites. The fascia of the umbilicus was closed using [id number] 0 Vicryl sutures and the subcutaneous tissue was approximated using 3-0 Vicryl sutures. The skin at all four ports were closed using 4-0 Monocryl and Dermabond. A total of 10 millimeters of 0.5% Marcaine was infiltrated around the port sites. The patient was stable throughout the procedure.
== END 2021-03-06 10:47 | disposition home or self-care (01) ==
PROVIDERS: Anesthesiology; Visit Provider Surgery
PROC: 0FT44ZZ Resection of Gallbladder, Percutaneous Endoscopic Approach (ICD-10-PCS; CPT 47562; principal; 2021-03-06 08:50)
DX: K80.10 Calculus of gallbladder with chronic cholecystitis without obstruction (principal); E66.01 Morbid (severe) obesity due to excess calories; Z68.32 Body mass index [BMI] 32.0-32.9, adult; Z82.49 Family history of ischemic heart disease and other diseases of the circulatory system; Z83.3 Family history of diabetes mellitus
CPT/HCPCS: 47562; 81025; 84703; 88304; 96365; J0690; J1100; J2250; J2405; J2704; J2710; J2765; J3010; J3490; J7030

== ENCOUNTER 2021-12-20 16:01 | Outpatient (CLI) | payer BC, MEDICAID, SELFPAY ==
[2021-12-20 16:28] LABS: Basophils % 0.5 %; Eosinophils # 0.1 10^3/uL (0.0-0.8); Eosinophils % 1.1 %; Hematocrit 40.1 % (37.0-47.0); Hemoglobin 13.5 g/dL (11.5-15.3); Lymphocytes # 2.9 10^3/uL (0.8-4.8); Lymphocytes % 35.4 %; Mean Corpuscular HGB Conc 33.7 g/dL (30.0-36.0); Mean Corpuscular Hemoglobin 30.8 pg (28.0-34.0); Mean Corpuscular Volume 91.6 fl (81-99); Mean Platelet Volume 10.5 fL (7.4-10.4); Monocytes # 0.5 10^3/uL (0.2-0.9); Monocytes % 6.3 %; Neutrophils # 4.61 10^3/uL (1.8-7.7); Neutrophils % 56.5 %; Nucleated Red Blood Cells % 0 %; Platelet Count 276 10^3/cmm (130-400); Red Blood Count 4.38 10^6/uL (4.1-5.3); Red Cell Distribution Width 11.9 % (12.1-15.1); White Blood Count 8.2 10^3/uL (4.0-10.0)
[2021-12-20 16:54] LABS: HCG Quantitative 27.45 mIU/mL
[2021-12-23 09:35] LABS: HCG Quantitative 4.55 mIU/mL
== END 2021-12-20 16:02 | disposition home or self-care (01) ==
PROVIDERS: Visit Provider Obstetrics & Gynecology
DX: O46.90 Antepartum hemorrhage, unspecified, unspecified trimester (principal); N92.6 Irregular menstruation, unspecified
CPT/HCPCS: 36415; 84702; 85025; 86850; 86900

== ENCOUNTER 2021-12-23 06:00 | Outpatient (CLI) | payer BC, MEDICAID, SELFPAY | END 2021-12-23 06:01 | disposition home or self-care (01) | LOC: LAB 12-31 10:09 | PROVIDERS: Visit Provider Obstetrics & Gynecology | DX: O46.90 Antepartum hemorrhage, unspecified, unspecified trimester (principal); Z3A.00 Weeks of gestation of pregnancy not specified | CPT/HCPCS: 84702 ==

== ENCOUNTER → 2022-04-29 09:37 | Outpatient (BNVA) | payer BC, MEDICAID, SELFPAY | PROVIDERS: Visit Provider Family Medicine | DX: Z13.6 Encounter for screening for cardiovascular disorders (principal) | CPT/HCPCS: 80053; 80061; 83036; 84443; 85025 ==

== ENCOUNTER → 2022-07-25 09:33 | Outpatient (BNVA) | payer BC, MEDICAID, SELFPAY | PROVIDERS: PCP Family Medicine; Visit Provider Nurse Practitioner Women's Health | DX: Z11.3 Encounter for screening for infections with a predominantly sexual mode of transmission (principal); N93.9 Abnormal uterine and vaginal bleeding, unspecified; Z30.9 Encounter for contraceptive management, unspecified; Z30.011 Encounter for initial prescription of contraceptive pills | CPT/HCPCS: 81025; 86592; 86803; 87340; 87491; 87591; 87661; 87806 ==

== ENCOUNTER 2023-01-07 11:10 | Emergency (ER) | payer OTHER, SELFPAY ==
[2023-01-07 11:46] VITALS: BP 129/89; PULSE 87; RESP 18; TEMP 36.7; O2SAT 98; BMI 34.7
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
[2023-01-07 14:25] VITALS: BP 134/91; PULSE 88; O2SAT 96
== END 2023-01-07 14:28 | disposition home or self-care (01) ==
PROVIDERS: Emergency Provider Physician Assistant; PCP Family Medicine
DX: S16.1XXA Strain of muscle, fascia and tendon at neck level, initial encounter (principal); S39.012A Strain of muscle, fascia and tendon of lower back, initial encounter; V89.2XXA Person injured in unspecified motor-vehicle accident, traffic, initial encounter
CPT/HCPCS: 72040; 72072; 72100; 99284

== ENCOUNTER → 2024-03-31 10:58 | Outpatient (BNVA) | payer OTHER, SELFPAY | PROVIDERS: PCP Family Medicine; Visit Provider Nurse Practitioner Family | DX: E66.9 Obesity, unspecified (principal); Z68.38 Body mass index [BMI] 38.0-38.9, adult; E66.09 Other obesity due to excess calories | CPT/HCPCS: 80053; 80061; 85025 ==

== ENCOUNTER → 2025-01-24 16:01 | Outpatient (BNVA) | payer OTHER, SELFPAY | PROVIDERS: PCP Family Medicine; Visit Provider Nurse Practitioner Women's Health | DX: Z01.419 Encounter for gynecological examination (general) (routine) without abnormal findings (principal) | CPT/HCPCS: 86592; 86695; 86696; 86762; 86803; 87340; 87491; 87591; 87624; 87661; 87806 ==

== ENCOUNTER 2025-07-07 10:04 | Outpatient (CLI) | payer OTHER, SELFPAY ==
[2025-07-07] VITALS (10 sets, daily range): BP systolic 126–170; BP diastolic 71–104; PULSE 85–115; RESP 16–17; BMI 31.1
== END 2025-07-07 12:09 | disposition home or self-care (01) ==
LOC: OPOB 10:05 → OBGYN 10:06
PROVIDERS: Absent Provider Family Medicine; PCP Family Medicine; Visit Provider Family Medicine
DX: O26.899 Other specified pregnancy related conditions, unspecified trimester (principal); Z3A.00 Weeks of gestation of pregnancy not specified; W19.XXXA Unspecified fall, initial encounter
CPT/HCPCS: 99211